=== PATIENT | female | born 1960 | race Caucasian/White ===

== ENCOUNTER 2021-04-18 12:25 | Day surgery (SDC) | payer MEDICARE ==
[2021-04-18] MEDS ORDERED: LIDOCAINE HCL 2% 100 MG/5 ML IJ ONE (12:26)
[2021-04-18] MEDS ORDERED: Depo-Medrol 40 MG/ML IM ONE (12:26)
[2021-04-18] MEDS ORDERED: Lactated Ringers 1,000 ML IV ONE (14:29)
[2021-04-18] MEDS ORDERED: DIPRIVAN 200 MG/20 ML IV ONE (14:48)
--- NOTE | 2021-04-18 17:20 | XRAY ---
Indication: Bilateral L4-S1 MBB. Intraoperative fluoroscopy provided for 18 seconds. Single digital spot image submitted for interpretation demonstrates posterior needle tips projecting over the expected left and right L4-S1 nerve roots. Correlate with intraoperative findings/report.
--- NOTE | 2021-04-18 17:21 | XRAY ---
18 seconds fluoroscopy time in surgery for bilateral L4-S1 MBB.
== END 2021-04-18 15:16 | disposition home or self-care (01) ==
LOC: SDC-PAIN 12:25
PROVIDERS: ATTEND Psychiatry & Neurology Pain Medicine
DX: M47.816 Spondylosis without myelopathy or radiculopathy, lumbar region (principal); Z79.899 Other long term (current) drug therapy
CPT/HCPCS: 64493; 64494; 72020; 77002; J1030; J2704

== ENCOUNTER 2021-06-14 06:53 | Day surgery (SDC) | payer MEDICARE ==
[2021-06-14] MEDS ORDERED: BUPIVACAINE 0.5% VIAL IJ ONE (06:54)
[2021-06-14] MEDS ORDERED: Depo-Medrol 40 MG/ML IM ONE (06:54)
[2021-06-14] MEDS ORDERED: Lactated Ringers 1,000 ML IV ONE (08:17)
[2021-06-14] MEDS ORDERED: DIPRIVAN 200 MG/20 ML IV ONE (08:37)
--- NOTE | 2021-06-14 10:14 | XRAY ---
Indication: Bilateral L4-S1 MBB. Intraoperative fluoroscopy provided for 10 seconds. Single digital spot image submitted for interpretation demonstrates posterior needle tips projecting over the expected left and right L4-S1 nerve roots. Correlate with intraoperative findings/report.
--- NOTE | 2021-06-14 11:05 | XRAY ---
10 seconds fluoroscopy time in surgery for bilateral L4-S1 MBB.
== END 2021-06-14 08:59 | disposition home or self-care (01) ==
LOC: SDC-PAIN 06:53
PROVIDERS: ATTEND Psychiatry & Neurology Pain Medicine
DX: M47.816 Spondylosis without myelopathy or radiculopathy, lumbar region (principal); Z79.899 Other long term (current) drug therapy
CPT/HCPCS: 64493; 64494; 72020; 77002; J1030; J2704

== ENCOUNTER 2021-07-18 07:06 | Day surgery (SDC) | payer MEDICARE ==
[2021-07-18] MEDS ORDERED: Marcaine Mpf 0.5% Vial 30 Ml IJ ONE (07:07)
[2021-07-18] MEDS ORDERED: Xylocaine 1% Vial 30 ML PF IJ ONE (07:07)
[2021-07-18] MEDS ORDERED: Xylocaine-Mpf 2% 5 Ml Vial ONE (08:16)
[2021-07-18] MEDS ORDERED: Lactated Ringers 1,000 ML IV ONE (09:11)
--- NOTE | 2021-07-18 09:33 | XRAY ---
14 seconds of fluoroscopy was used in surgery for a left L4-S1 RFA.
--- NOTE | 2021-07-18 09:33 | XRAY ---
Indication: Left L4-S1 RFA. Intraoperative fluoroscopy provided for 14 seconds. 4 digital spot images submitted for interpretation demonstrates posterior needle tips projecting over the expected left L4-S1 nerve roots. Correlate with intraoperative findings/report.
== END 2021-07-18 08:28 | disposition home or self-care (01) ==
LOC: SDC-PAIN 07:06
PROVIDERS: ATTEND Psychiatry & Neurology Pain Medicine
DX: M47.816 Spondylosis without myelopathy or radiculopathy, lumbar region (principal); Z79.899 Other long term (current) drug therapy
CPT/HCPCS: 64635; 64636; 72100; 77002; J2001

== ENCOUNTER 2021-07-25 09:05 | Day surgery (SDC) | payer MEDICARE ==
[2021-07-25] MEDS ORDERED: Marcaine Mpf 0.5% Vial 30 Ml IJ ONE (09:06)
[2021-07-25] MEDS ORDERED: Xylocaine 1% Vial 30 ML PF IJ ONE (09:06)
[2021-07-25] MEDS ORDERED: Lactated Ringers 1,000 ML IV ONE (09:40)
[2021-07-25] MEDS ORDERED: DIPRIVAN 200 MG/20 ML IV ONE (09:43)
--- NOTE | 2021-07-25 10:25 | XRAY ---
Indication: Right L4-S1 RFA. Intraoperative fluoroscopy provided for 15 seconds. 3 digital spot image submitted for interpretation demonstrates posterior needle tips projecting over the expected right L4-S1 nerve roots. Correlate with intraoperative findings/report.
--- NOTE | 2021-07-25 10:32 | XRAY ---
15 seconds fluoroscopy time in surgery for right L4-S1 RFA.
== END 2021-07-25 10:14 | disposition home or self-care (01) ==
LOC: SDC-PAIN 09:05
PROVIDERS: ATTEND Psychiatry & Neurology Pain Medicine
DX: M47.816 Spondylosis without myelopathy or radiculopathy, lumbar region (principal); Z79.899 Other long term (current) drug therapy
CPT/HCPCS: 64635; 64636; 72100; 77002; J2001; J2704